=== PATIENT | male | born 1960 | race Caucasian/White ===

== ENCOUNTER 2018-11-03 12:41 | Day surgery (SDC) | payer MEDICARE ==
[2018-11-03] MEDS ORDERED: Depo-Medrol 40 MG/ML IM ONE (12:42)
[2018-11-03] MEDS ORDERED: Xylocaine-Mpf 2% 5 Ml Vial IJ ONE (12:42)
--- NOTE | 2018-11-03 14:30 | XRAY ---
Indication: Bilateral L4-S1 MBB. Intraoperative fluoroscopy was provided for 6 seconds. Single digital spot image submitted for interpretation demonstrates posterior needle tips projecting over the expected course of the left and right L4-S1 nerve roots. Correlate with intraoperative findings/report.
--- NOTE | 2018-11-03 14:35 | XRAY ---
6 seconds fluoroscopy time in surgery for bilateral L4-S1 MBB.
[2018-11-03] MEDS ORDERED: Lactated Ringers 1,000 ML IV ONE (15:26)
== END 2018-11-03 14:00 | disposition home or self-care (01) ==
LOC: SDC-PAIN 12:41
PROVIDERS: ATTEND Psychiatry & Neurology Pain Medicine
DX: M47.816 Spondylosis without myelopathy or radiculopathy, lumbar region (principal); I10 Essential (primary) hypertension; Z79.899 Other long term (current) drug therapy
CPT/HCPCS: 64493; 64494; 72020; 77002; J1030

== ENCOUNTER 2018-12-15 12:18 | Day surgery (SDC) | payer MEDICARE ==
[2018-12-15] MEDS ORDERED: Marcaine 0.5% SDV 10 ML IJ ONE (12:19)
[2018-12-15] MEDS ORDERED: Depo-Medrol 40 MG/ML IM ONE (12:19)
[2018-12-15] MEDS ORDERED: DIPRIVAN 200 MG/20 ML IV ONE (13:21)
[2018-12-15] MEDS ORDERED: Ketamine HCl 50 MG/ML ONE (13:21)
[2018-12-15] MEDS ORDERED: Lactated Ringers 1,000 ML IV ONE (13:58)
--- NOTE | 2018-12-15 16:26 | XRAY ---
8 seconds fluoroscopy time in surgery for bilateral L4-S1 MBB.
--- NOTE | 2018-12-16 06:56 | XRAY ---
Indication: Bilateral L4-S1 MBB. Intraoperative operative fluoroscopy was provided for 8 seconds. A PA digital spot image demonstrates posterior spinal needle tips to be projected over the expected course of the left and right L4-S1 nerve roots. Correlate with intraoperative findings/report.
== END 2018-12-15 13:52 | disposition home or self-care (01) ==
LOC: SDC-PAIN 12:18
PROVIDERS: ATTEND Psychiatry & Neurology Pain Medicine
DX: M47.816 Spondylosis without myelopathy or radiculopathy, lumbar region (principal); I10 Essential (primary) hypertension; Z79.899 Other long term (current) drug therapy
CPT/HCPCS: 64493; 64494; 72020; 77002; J1030; J2704

== ENCOUNTER 2019-02-02 08:11 | Day surgery (SDC) | payer MEDICARE ==
[~2019-02-02 08:11] MED LIST: DIPRIVAN 200 MG/20 ML IV ONE; Ketamine HCl 50 MG/ML ONE
[2019-02-02] MEDS ORDERED: Depo-Medrol 40 MG/ML IM ONE (08:12)
[2019-02-02] MEDS ORDERED: Marcaine 0.5% SDV 10 ML IJ ONE (08:12)
[2019-02-02] MEDS ORDERED: Xylocaine 1% Vial 30 ML PF IJ ONE (08:12)
[2019-02-02] MEDS ORDERED: DIPRIVAN 200 MG/20 ML IV ONE (09:11)
[2019-02-02] MEDS ORDERED: Ketamine HCl 50 MG/ML ONE (09:13)
--- NOTE | 2019-02-02 12:43 | XRAY ---
Indication: Right L4-S1 RFA. Intraoperative fluoroscopy was provided for 23 seconds. 4 digital spot images submitted for interpretation demonstrates posterior needle tips projecting over the expected course of the right L4-S1 nerve roots. Correlate with intraoperative findings/report.
--- NOTE | 2019-02-02 12:51 | XRAY ---
23 seconds fluoroscopy time in surgery for right L4-S1 RFA.
[2019-02-02] MEDS ORDERED: Lactated Ringers 1,000 ML IV ONE (18:20)
== END 2019-02-02 09:51 | disposition home or self-care (01) ==
LOC: SDC-PAIN 08:11
PROVIDERS: ATTEND Psychiatry & Neurology Pain Medicine
DX: M47.816 Spondylosis without myelopathy or radiculopathy, lumbar region (principal); I10 Essential (primary) hypertension; Z79.899 Other long term (current) drug therapy
CPT/HCPCS: 64635; 64636; 72100; 77002; J1030; J2001; J2704

== ENCOUNTER 2019-03-09 15:53 | Day surgery (SDC) | payer MEDICARE ==
[2019-03-09] MEDS ORDERED: Marcaine 0.5% SDV 10 ML IJ ONE (15:54)
[2019-03-09] MEDS ORDERED: Depo-Medrol 40 MG/ML IM ONE (15:54)
[2019-03-09] MEDS ORDERED: Xylocaine 1% Vial 30 ML PF IJ ONE (15:54)
[2019-03-09] MEDS ORDERED: Lactated Ringers 1,000 ML IV ONE (16:24)
--- NOTE | 2019-03-09 17:22 | XRAY ---
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 Intraoperative fluoroscopy was provided for 25 seconds. 4 digital spot images submitted for interpretation demonstrates posterior needle tips projecting over the expected course of the left L4-S1 nerve roots. Correlate with intraoperative findings/report.
--- NOTE | 2019-03-10 09:07 | XRAY ---
25 seconds fluoroscopy time in surgery for L4-S1 RFA.
== END 2019-03-09 17:19 | disposition home or self-care (01) ==
LOC: SDC-PAIN 15:53
PROVIDERS: ATTEND Psychiatry & Neurology Pain Medicine
DX: M47.816 Spondylosis without myelopathy or radiculopathy, lumbar region (principal); I10 Essential (primary) hypertension; Z79.899 Other long term (current) drug therapy
CPT/HCPCS: 64635; 64636; 72100; 77002; J1030; J2001

== ENCOUNTER 2019-09-28 13:38 | Day surgery (SDC) | payer MEDICARE ==
[2019-09-28] MEDS ORDERED: Depo-Medrol 40 MG/ML IM ONE (13:39)
[2019-09-28] MEDS ORDERED: Marcaine 0.5% SDV 10 ML IJ ONE (13:39)
[2019-09-28] MEDS ORDERED: Lactated Ringers 1,000 ML IV ONE (15:58)
--- NOTE | 2019-09-28 16:41 | XRAY ---
Indication: Bilateral SI joint injection. Intraoperative fluoroscopy was provided for 10 seconds. 4 digital spot images submitted for interpretation demonstrates posterior needle tip projecting over the inferior left and right SI joint. Correlate with intraoperative findings/report.
--- NOTE | 2019-09-28 16:43 | XRAY ---
10 seconds of fluoroscopy was used in surgery for a bilateral SI joint injection.
== END 2019-09-28 15:21 | disposition home or self-care (01) ==
LOC: SDC-PAIN 13:38
PROVIDERS: ATTEND Psychiatry & Neurology Pain Medicine
DX: M46.1 Sacroiliitis, not elsewhere classified (principal); I10 Essential (primary) hypertension; Z79.899 Other long term (current) drug therapy
CPT/HCPCS: 72202; 77002; G0260; 27096; J1030; J2704